=== PATIENT | male | born 1980 | race Caucasian/White ===

== ENCOUNTER 2021-04-16 09:25 | Emergency (ER) | payer BC, SELFPAY ==
[2021-04-16 09:26] VITALS: BP 146/89; PULSE 90; RESP 18; TEMP 36.6; O2SAT 99; BMI 20.8
--- NOTE | 2021-04-16 09:33 | NURSING ---
NO OLD EKGS
--- NOTE | 2021-04-16 09:36 | EKG12_ITS ---
Test Reason : CHEST PAIN Blood Pressure : / mmHG Vent. Rate : 084 BPM Atrial Rate : 084 BPM P-R Int : 172 ms QRS Dur : 088 ms QT Int : 358 ms P-R-T Axes : 073 104 063 degrees QTc Int : 423 ms Normal sinus rhythm Possible Left atrial enlargement Rightward axis Borderline ECG Confirmed by ASHLEIGH FORTE, SAEED ([id number]), editor magazine MARY CABALLERO ([id number]) on 04/20/2021 8:11:52 AM Referred By: JOHN Confirmed By:SAEED SOTELO MD
--- NOTE | 2021-04-16 09:36 | RAD_ITS ---
STUDY: X-RAY CHEST REASON FOR EXAM: Male, 40 years old. Cp TECHNIQUE: PA and lateral views of the chest. COMPARISON: None. FINDINGS: EKG electrodes are seen. Hyperinflation. The lungs are clear. There is no demonstrated pleural abnormality. Normal size heart. Normal mediastinum and mirella. Normal visualized pulmonary arteries. Normal visualized aortic arch and descending thoracic aorta. Normal visualized thoracic spine. Normal visualized ribs, clavicles, and shoulders. There is no demonstrated abnormality of the visualized soft tissue structures of the upper abdomen. RAD/Chest PA and Lateral IMPRESSION: Hyperinflation. Electronically Signed: Maurisio Meyer MD at 10:09 EDT , Service support ,
--- NOTE | 2021-04-16 09:49 | EDS_ITS ---
HPI History of Present Illness Chief Complaint: Chest Pain Informant: patient Onset/Context/Timing Onset: Weeks Timing: Intermittent Quality: Positive for Burning and Tightness Location: Left Parasternal Current Severity: Mild Maximum Severity: Severe Worsened By: - (Supine position); Not Worsened By Exertion, Movement of Arm, Movement of Torso, Eating, Palpation, Breathing and Coughing Relieved By: Nothing Associated Symptoms: Positive for Acid Reflux (Question) and - (Possible tingling in his fingers left side and toes); Negative for Nausea, Vomiting, Diaphoresis, Dyspnea, Cough, Fever, Lightheadedness and Palpitations Narrative Narrative: Patient is a healthy 40-year-old male on no medication with no significant past medical history. Family history is unknown since he is adopted. He denies history of GERD. Denies history of black or maroon-colored stool. He denies sour eructation or sour taste in the back of his throat. He does not recall what he has eaten when he had the episodes over the last 2 weeks. It is not exertion related. He states he has been able to ride his bike 30 to 50 miles without symptoms. He is a non-smoker. He states a sixpack of beer last him approximately 3 weeks. He denies drug use. He denies history of VTE. Denies leg pain, swelling discoloration. Prior Similar Symptoms: No Recent Illness/Hospitalization: No CVD Risk Factors: Negative for Hypertension, Diabetes, Hypercholesterolemia, Family History 1' </=55 and Smoking PE Risk Factors: Negative for Recent Travel/Surgery, Recent Immobilization, Prior DVT or PE and OCP + Smoking + >/=35 TAD Risk Factors: Negative for Marfan's Syndrome, Hypertension and Family History [facility] Medical History (Updated 04/16/21 @ 11:[address] Jose Juan Schultz MD) Varicocele no medical history Allergy/AdvReac Type Severity Reaction Status Date / Time No Known Allergies Allergy Verified 04/16/21 09:27 adopted Social History (Updated 04/16/21 @ 09:[address] Jose Juan Schultz MD) household members: spouse and children current occupational exposures/hazards: No leisure activities: other history of recent travel: No Smoking Status: Never smoker alcohol intake: current alcohol intake frequency: a few times a month substance use type: does not use what type of physical activity do you participate in: running and bicycling ROS ROS ED Constitutional Constitutional ED: Denies chills, fever(s) or subjective Eyes Eyes: Denies blurry vision, change in vision or diplopia ENT ENT ED: Denies ear pain, rhinorrhea or sore throat Cardiovascular Cardiovascular: Reports as per HPI; Denies orthopnea or paroxysmal nocturnal dyspnea Respiratory/Chest Respiratory/Chest: Denies cough, dyspnea, dyspnea on exertion, orthopnea or paroxysmal nocturnal dyspnea Gastrointestinal Gastrointestinal: Reports abdominal pain; Denies diarrhea, melena, nausea or vomiting Genitourinary Genitourinary ED: Denies dysuria or hematuria Musculoskeletal Musculoskeletal: Denies arthralgias, back pain or myalgias Integumentary Denies rash Neurologic Neurologic: Reports paresthesias; Denies headache(s) or weakness Hematologic/Lymphatic Hematologic/Lymphatic: Denies easy bruising EXAM Physical Exam Const Vital Signs: 04/16/21 09:26 04/16/21 09:33 Temperature 98 F Temperature Source Oral Pulse Rate 90 Respiratory Rate 18 Respiratory Effort Normal Non-Labored Respiratory Pattern Normal Blood Pressure 146/89 H Blood Pressure Mean 108 Pulse Ox 99 Oxygen Delivery Method Room Air Positive well nourished and well developed General Appearance ED: well developed and NAD; Negative for pallor HEENT Reports TM's clear and moist mucous membranes HEENT Narrative: Uvula midline. No erythema exudate of posterior pharynx. normocephalic Tympanic Membrane ED: Yes TM's clear Eyes PERRL and EOMs intact bilaterally General Eye ED: Negative for pale conjunctiva or scleral icterus Neck no lymphadenopathy, supple and no JVD General: Negative for tenderness Chest Wall inspection of chest normal and palpation of chest normal Resp normal respiratory effort Effort and Inspection: respiratory distress Cardio regular rate, regular rhythm, S1 normal heart sound, S2 normal heart sound and no murmurs GI normal to inspection, nondistended, normoactive bowel sounds, soft to palpation and non-tender Back/Spine no CVA tenderness Extremity normal to inspection Extremity Narrative: There is no asymmetry, swelling, discoloration, leg vein distention, palpable cords or tenderness along the distribution of the deep venous system. Neuro oriented x3 Sensorium / Orientation: awake and alert Psych mental status grossly normal Skin no rashes or lesions noted and no wounds General Skin Exam: Negative for jaundice or pallor Heart Score History: Slightly/Non-Suspicious ECG: Normal Age: </= 45 years Risk Factors: No Risk Factors Troponin: </= Normal Limit Score: 0 MDM MDM MDM Narrative Medical decision making narrative: Patient presents with atypical chest discomfort. Suspect this represents GERD. Will obtain EKG to assess for evidence of ischemia, pericarditis myocarditis. Troponin was obtained. Chest x-ray to rule out noncardiac causes i.e. pneumonia etc. Suspect patient's symptoms are due to reflux. Plan is Pepcid for 2 weeks and follow-up with Dr. Atkins. Patient was discharged appropriate home-going instructions. Patient's heart score was 0. Lab Data Attestation: I reviewed the patient's lab results. Labs: Laboratory Results - last 24 hr 04/16/21 04/16/21 04/16/21 09:45 09:45 10:06 WBC 5.4 RBC 5.06 Hgb 15.6 Hct 45.1 MCV 89.1 MCH 30.8 MCHC 34.6 RDW Std Deviation 37.1 RDW Coeff of [place] 11.6 Plt Count 226 MPV 11.0 Sodium Cancelled 139 Potassium Cancelled 4.0 Chloride Cancelled 104 Carbon Dioxide Cancelled 30.0 Anion Gap Cancelled 5 BUN Cancelled 14 Creatinine Cancelled 1.03 Estim Creat Clear Calc Cancelled 92.24 Est GFR (MDRD) Af Amer Cancelled 102 Est GFR (MDRD) Non-Af Cancelled 84 BUN/Creatinine Ratio Cancelled 13.6 Glucose Cancelled 108 H Calcium Cancelled 9.4 Troponin I Cancelled < 0.015 Patient's work-up is negative. Laboratory tests including troponin normal. Radiography Diagnostic Testing: Radiology Impression Chest X-Ray 04/16/21 09:36 IMPRESSION: Hyperinflation. Electronically Signed: Maurisio Meyer MD at 10:09 EDT , Service support , EKG Initial EKG: Interpretation: Sinus Rhythm (Normal sinus rhythm with a ventricular rate 84. OR interval is 172 ms. QS duration 88 ms. QT duration 358 ms. [place] to the right. The EKG is otherwise unremarkable.) Discharge Plan Triage Chief Complaint: Chest Pain ED Provider: Jose Juan Schultz Dx/Rx/DC Orders Clinical Impression: Chest tightness Instructions: Lifestyle Changes for Controlling GERD, ED Chest Pain, Noncardiac, ED GERD (Adult) Primary Care Provider: Odin Atkins Referrals: Odin Atkins MD [Primary Care Provider] - 10-14 Days if not better Activity Restrictions/Additional Instructions: Take [id number] omeprazole as discussed. Disposition Disposition: Home, self care
[2021-04-16 09:51] LABS: Hematocrit 45.1 % (40-54); Hemoglobin 15.6 g/dL (13.0-16.5); Mean Corp Hgb Conc 34.6 g/dL (32-36); Mean Corpuscular Hgb 30.8 pg (27.0-32.0); Mean Corpuscular Volume 89.1 fL (80-94); Platelet Count 226 K/mm3 (150-450); RBC Distribution Width CV 11.6 % (11.6-14.6); RBC Distribution Width SD 37.1 fl (35.1-43.9); Red Blood Count 5.06 M/mm3 (4.6-6.2); White Blood Count 5.4 K/mm3 (4.4-11.0)
--- NOTE | 2021-04-16 09:56 | NURSING ---
CHEMISTRIES HEMOLIZED
[2021-04-16 10:30] LABS: Anion Gap 5 (5-15); BUN 14 mg/dL (7-18); BUN/Creat Ratio 13.6 RATIO (10-20); Calcium,Total 9.4 mg/dL (8.5-10.1); Chloride 104 mmol/L (98-107); Creatinine, Serum 1.03 mg/dL (0.70-1.30); EST Glomerular Filtration Rate 84 mL/min (>60); Est Glom Filt Rate - Afr Amer 102 mL/min (>60); Estimated Creatinine Clearance 92.24 ml/min; Glucose 108 mg/dL (74-106); Sodium Level 139 mmol/L (136-145)
[2021-04-16 11:22] VITALS: BP 117/81; PULSE 69; RESP 15; O2SAT 98
== END 2021-04-16 11:29 | disposition home or self-care (01) ==
PROVIDERS: Emergency Provider Emergency Medicine; PCP Family Medicine
DX: R07.89 Other chest pain (principal)
CPT/HCPCS: 36415; 71046; 80048; 84484; 85027; 93005; 99285; A4216

== ENCOUNTER → 2025-02-09 | Outpatient (CLI) | payer BC, SELFPAY ==
[2025-02-09 08:34] LABS: Absolute Lymphocyte Count 1.88 X10^3/uL (0.83-4.51); Absolute Neutrophil Count 2.7 X10^3/uL (2.0-7.7); Basophil# 0.06 X10^3/uL; Basophil% 1.1 % (0-1); Eosinophil# 0.15 X10^3/uL; Eosinophils% 2.8 % (0-5); Hematocrit 44.1 % (40-54); Hemoglobin 15.5 g/dL (13.0-16.5); Lymphocyte # 1.88 X10^3/ul (0.83-4.51); Lymphocyte % 34.8 % (19-41); Mean Corp Hgb Conc 35.1 g/dL (32-36); Mean Corpuscular Hgb 31.5 pg (27.0-32.0); Mean Corpuscular Volume 89.6 fL (80-94); Monocyte# 0.64 X10^3/uL; Monocyte% 11.9 % (0-10); NRBC Flagged by Analyzer 0 % (0-5); Neutrophil # 2.65 X10^3/uL (2.7-7.7); Platelet Count 242 K/mm3 (150-450); RBC Distribution Width CV 11.9 % (11.6-14.6); RBC Distribution Width SD 39.2 fl (35.1-43.9); Red Blood Count 4.92 M/mm3 (4.6-6.2); White Blood Count 5.4 K/mm3 (4.4-11.0)
[2025-02-09 08:57] LABS: ALB/GLOB Ratio 1.9 RATIO (0.9-2.4); AST(SGOT) 24 U/L (<=37); Alanine Aminotransfer ALT/SGPT 21 U/L (<=46); Albumin, Serum 4.6 g/dL (3.5-5.0); Alkaline Phosphatase 77 U/L (40-129); Anion Gap 10 (5-15); BUN 14 mg/dL (4-19); Calcium,Total 9.5 mg/dL (7.6-11.0); Carbon Dioxide 24.8 mmol/L (21.0-32.0); Chloride 106 mmol/L (98-108); Cholesterol 222 mg/dL (<=200); Creatinine, Serum 0.94 mg/dL (0.70-1.20); EST Glomerular Filtration Rate 101 (>60); Globulin 2.4 g/dL (2.2-4.2); Glucose 103 mg/dL (70-99); High Density Lipoprotein 67 mg/dL; Low Density Lipoprotein Calc. 138 mg/dL; Potassium 4.5 mmol/L (3.3-5.1); Sodium Level 140 mmol/L (133-145); Triglycerides 86 mg/dL; Very Low Density Lipoprotein 17 mg/dL (5-40); cholesterol:hdl ratio screen 3.32
== END | disposition home or self-care (01) ==
LOC: LAB 07:55
PROVIDERS: PCP Family Medicine; Referring Provider Family Medicine; Visit Provider Family Medicine
DX: Z00.00 Encounter for general adult medical examination without abnormal findings (principal)
CPT/HCPCS: 36415; 80053; 80061; 85025